=== PATIENT | female | born 1970 | race Caucasian/White ===

== ENCOUNTER 2016-08-16 14:08 | Emergency (ER) | payer SELFPAY ==
[~2016-08-16] VITALS: Ht 160 cm; Wt 72.0 kg
[~2016-08-16 14:08] MED LIST: IOHEXOL-300 100 ML BOTTLE ONE; SODIUM CHLORIDE 0.9% 10ML VIAL ONE
[2016-08-16] MEDS ORDERED: ONDANSETRON HCL 4MG/2ML VIAL IV STA (15:24)
[2016-08-16] MEDS ORDERED: MORPHINE SULFATE 4 MG/ML CPJ (NOT FOR IM USE) IV STA (15:24)
[2016-08-16] MEDS ORDERED: SODIUM CHLORIDE 0.9% 1,000 ML IV ONE (15:24)
[2016-08-16 15:58] LABS: BASOPHILS % 0.6 % (0.0-2.0); HEMATOCRIT. 29.9 % (36.0-48.0); HEMOGLOBIN. 9.5 g/dL (12.0-16.0); LYMPHOCYTES % 21.8 % (20.0-50.0); MEAN CORPUSCULAR HEMOGLOBIN 23.6 pg (28.0-32.0); MEAN CORPUSCULAR VOLUME 74.2 fL (81.0-99.0); MEAN PLATELET VOLUME 10.1 fl (7.4-10.4); MONOCYTES % 7.6 % (2.0-8.0); PLATELET 172 x1000/uL (130-400); RED BLOOD CELL COUNT 4.02 mill/uL (4.2-5.4); RED CELL DISTRIBUTION WIDTH 17.1 % (11.6-14.6)
[2016-08-16 15:59] LABS: GLUCOSE URINE NEGATIVE (NEGATIVE); KETONES URINE 2+ (NEGATIVE); LEUKOCYTE ESTERASE URINE 2+ (NEGATIVE); NITRITE URINE POSITIVE (NEGATIVE); OCCULT BLOOD URINE 3+ (NEGATIVE); PROTEIN URINE 2+ (NEGATIVE); SPECIFIC GRAVITY URINE 1.027 (1.005-1.030)
[2016-08-16 16:00] LABS: INR 1.1; PROTHROMBIN TIME 11.1 sec
[2016-08-16 16:01] LABS: CLARITY URINE TURBID (CLEAR); COLOR URINE BLOODY (YELLOW)
[2016-08-16 16:09] LABS: CARBON DIOXIDE 27 mEq/L (21-32); CHLORIDE 108 mEq/L (98-107)
[2016-08-16 16:14] LABS: HCG SCREEN NEGATIVE
[2016-08-16] MEDS ORDERED: IBUPROFEN 600MG TABLET PO ONE (19:45)
[2016-08-16 20:32] VITALS: BP 167/75
== END 2016-08-16 21:44 | disposition home or self-care (01) ==
LOC: ER 15:13
DX: N39.0 Urinary tract infection, site not specified (principal); D64.9 Anemia, unspecified; D28.2 Benign neoplasm of uterine tubes and ligaments; N83.209 Unspecified ovarian cyst, unspecified side; Z98.51 Tubal ligation status
CPT/HCPCS: 36415; 74177; 76830; 76856; 80053; 81001; 83690; 84703; 85025; 85610; 96361; 96374; 96375; 99285; A4216; J2270; J2405; J7030; Q9967; Z7610